=== PATIENT | female | born 1995 | race African-American/Black ===

== ENCOUNTER 2017-08-02 23:26 | Observation (INO) | payer SELFPAY ==
[2017-08-03 00:34] LABS: Pregnancy Test - Urine (BHCG) POSITIVE (Negative); Pregu Control Background? CLEAR/WHITE (CLR/WHITE); Pregu Control Bar Appear? YES (CONTROL BAR); Specific Gravity 1.024 (1.002-1.036)
[2017-08-03 00:42] LABS: #Monocytes 0.3 thou/uL (0.11-0.59); #Neutrophils 12.3 thou/uL (1.40-6.50); %Basophils 0.2 % (0.0-1.0); %Eosinophils 0.2 % (0.0-10.0); %Lymphocytes 7.6 % (28.0-48.0); %Monocytes 2.1 % (0.0-4.0); %Neutrophils 89.9 % (31.0-61.0); Hemoglobin 10.3 g/dL (12.0-16.0); Mean Corpuscular HGB CONC 32.3 g/dL (32.0-36.0); Mean Corpuscular Hemoglobin 24.9 pg (25.0-35.0); Mean Corpuscular Volume 77.2 fl (77.0-87.0); Platelet Count 209 thou/uL (130-400); RBC Distribution Width 13.9 % (11.5-14.5); Red Blood Cell (RBC) Count 4.12 mill/uL (4.00-5.20); White Blood Cell (WBC) Count 13.6 thou/uL (4.8-10.8)
[2017-08-03 01:05] LABS: ALT (SGPT) 8 U/L (8-55); AST (SGOT) 15 U/L (5-30); Albumin 4.3 g/dL (3.5-5.0); Alkaline Phosphatase 48 U/L (40-150); Anion Gap 12 mmol/L (10-20); BUN (Urea Nitrogen) 7 mg/dL (8.4-21.0); Bilirubin, Total 0.5 mg/dL (0.2-1.2); Calc. Creatinine Clearance 0 mL/min (70-130); Calcium 9.4 mg/dL (7.8-10.44); Carbon Dioxide 23 mmol/L (22-29); Chloride 104 mmol/L (98-107); Estimated GFR-MDRD Greater than 90; Globulin 2.9 g/dL (2.4-3.5); Glucose 99 mg/dL (70-105); Potassium 3.2 mmol/L (3.5-5.1); Protein, Total 7.2 g/dL (6.0-8.3); Sodium 136 mmol/L (136-145)
[2017-08-03] MEDS ORDERED: Ondansetron HCl/PF 4 MG/2 ML Vial ONE (02:09)
[2017-08-03] MEDS ORDERED: Morphine 2 MG/ML SYRINGE ONE (02:11)
[2017-08-03] MEDS ORDERED: Sodium Chloride 0.9% 1,000 ML IV SCH ×2 (03:59→04:30)
[2017-08-03] MEDS ORDERED: Ondansetron ODT 4 MG TAB SL PRN (03:59)
[2017-08-03] MEDS ORDERED: Ondansetron HCl/PF 4 MG/2 ML Vial IVP PRN (03:59)
--- NOTE | 2017-08-03 04:06 | HP ---
DATE OF ENCOUNTER: 08/03/2017 CHIEF COMPLAINT: Suspected ectopic . HISTORY OF PRESENT ILLNESS: The patient is a 21-year-old G1, P0 female who came to the emergency room reporting a 1 week history of abdominal pain with nausea and vomiting. During the work up, patient was noted to have hemoglobin at 10.3, hematocrit 31.8, and platelets of 209,000. A positive test with a quant level of 170 and a pelvic ultrasound demonstrating free fluid in the belly in the right adnexal mass. PIG STICKER was consulted for evaluation. Patient reports she has been having pain, it has gotten worse over the last week with nausea and vomiting and she came to emergency room because her pain had not been getting better. Patient reports she has had some vaginal spotting recently, but has nothing right now. Patient denies chest pain, shortness of breath. She denies any recent illness, fever, fall, headache. She has been having constipation and vaginal spotting. GYNECOLOGIC HISTORY: Patient reports her last menstrual period was the end of 06/29. She reports having regular monthly periods up to that point. PHYSICAL EXAMINATION: VITAL SIGNS: Have remained stable over the 3 hours that she has been in the emergency room with blood pressures in the one teens, 120s systolic and 60s to 70s diastolic. Pulse in the 60s, respiratory rate 18, temperature 98.1. GENERAL: She appears to be in no acute distress. She is alert and oriented, cooperative and pleasant to interact with. HEENT: Normocephalic, atraumatic. LUNGS: Clear to auscultation bilaterally. HEART: Regular rate and rhythm. ABDOMEN: Soft. She has some tenderness in the right lower quadrant, but no rebound. No peritoneal tenderness. EXTREMITIES: Nontender, nonedematous. LABS: Ultrasound findings per HPI. ASSESSMENT AND PLAN: The patient is a 21-year-old female with a suspected ectopic , interesting is the patient's vital signs remained stable, though she has free fluid seen in the belly with pulse in the 60s and complete normal blood pressure. Her physical exam apart from some right lower quadrant pain is pretty benign. Her hemoglobin level is near normal levels. After discussing these findings with the patient and giving her options of surgery versus expectant management. Patient has opted for expectant management at this time, which I think is a reasonable thing given her physical findings, laboratory findings, and a quant level of 170. It is possible that this ectopic either aborted out at the end of the tube, sometime before presentation and is already hemostatic or ruptured and is already hemostatic. Patient will remain in the hospital for observation lab work and reevaluation will be performed about every 4 to 6 hours until the picture is clear about the need to move to proceed with surgery or to continue expectant management in outpatient setting. We did discuss the risks and benefits to surgery including bleeding, infection, damage to bowel, bladder, blood vessels, possible effect on sterility or infertility in a negative fashion. Also, discussed the benefit of surgery as obtain a definitive diagnosis and resolving any complications as a result of this to prevent loss of life or worsening morbidity. Patient was brought to the floor where she will receive serial exams and laboratory work until the picture becomes more clear. LESLYE
[2017-08-03] MEDS ORDERED: Morphine 5 MG/ML SYRINGE SLOW IVP SCH ×2 (04:15→11:00)
[2017-08-03] MEDS ORDERED: Morphine 4 MG/ML Carpuject SLOW IVP SCH (04:15)
[2017-08-03 05:08] LABS: Hemoglobin 9.4 g/dL (12.0-16.0); Mean Corpuscular HGB CONC 32.2 g/dL (32.0-36.0); Mean Corpuscular Hemoglobin 24.7 pg (25.0-35.0); Mean Corpuscular Volume 76.7 fl (77.0-87.0); Mean Platelet Volume 8.8 fL (7.4-10.4); Platelet Count 168 thou/uL (130-400); RBC Distribution Width 13.9 % (11.5-14.5); White Blood Cell (WBC) Count 12.3 thou/uL (4.8-10.8)
[2017-08-03 06:45] VITALS: TEMP 98.3
[2017-08-03 07:27] LABS: Hemoglobin 9.5 g/dL (12.0-16.0); Mean Corpuscular HGB CONC 31.6 g/dL (32.0-36.0); Mean Corpuscular Hemoglobin 24.3 pg (25.0-35.0); Mean Corpuscular Volume 77.1 fl (77.0-87.0); Mean Platelet Volume 9.1 fL (7.4-10.4); Platelet Count 176 thou/uL (130-400); RBC Distribution Width 13.9 % (11.5-14.5); Red Blood Cell (RBC) Count 3.92 mill/uL (4.00-5.20); White Blood Cell (WBC) Count 11.5 thou/uL (4.8-10.8)
[2017-08-03 07:46] VITALS: BP 133/71
--- NOTE | 2017-08-03 08:03 | ULT ---
PRELIMINARY REPORT/[facility]/EMERGENCY AFTER HOURS PROCEDURE: EXAM: US , Transvaginal EXAM DATE/TIME: Exam ordered 08/03/2017 1:40 AM CLINICAL HISTORY: 21 years old, female; Pain; complicated by abdominal or pelvic pain; Right lower quadrant; First trimester; Gestational age or lmp: ? ; TECHNIQUE: Real-time transvaginal obstetrical ultrasound of the maternal pelvis and a first trimester with image documentation. Transvaginal imaging was used for better evaluation of the fetus and adnexa . COMPARISON: No relevant prior studies available. FINDINGS: Gestation: No visible intrauterine gestation. Uterus/cervix: Unremarkable. No myometrial mass. Ovaries: Normal left ovary with 1.2 cm dominant follicle. Normal Doppler signal. 6.2 x 3.2 by 2.8 cm heterogeneous and complex but mostly solid right adnexal mass with some internal Doppler vascularity. Free fluid: Moderate to large volume complex free fluid in the pelvis. IMPRESSION: 6.2 cm right adnexal mass is larger than expected for normal ovary. It may represent an adnexal mass closely apposed to the right ovary so that the two are indiscernible. Given the presence of moderate to large volume complex free fluid in the pelvis and absence of intrauterine gestation, this is very suspicious for a ruptured ectopic . Findings discussed with ZUNILDA FRANCIS MD at time of interpretation. Thank you for allowing us to participate in the care of your patient. Dictated and Authenticated by: Regulo Goins MD 08/03/2017 2:13 AM Central Time ([place] & [place]) FINAL REPORT ULTRASOUND PELVIC TRANSVAGINAL WITH DOPPLER: Date: 08/03/17 HISTORY: Pain. FINDINGS: The uterus measures 7.9 x 4.2 x 4.3 cm. Left ovary measures 2.8 x 2.4 x 2.6 cm with a 1.4 cm cyst. Ad equate vascular flow to left ovary. There is an abnormal appearance of the right adnexa with what sarita ears to be an adnexal mass, it is indeterminable from the right ovary. There appears to be complex fl uid in the cul-de-sac and hemorrhagic clot. IMPRESSION: Findings concerning for ruptured ectopic . Findings and impression are concordant with the preliminary report by Kwabena. POS: [facility]
[2017-08-03] MEDS ORDERED: traMADol HCl 50 MG TAB PO SCH (08:15)
--- NOTE | 2017-08-03 09:34 | PDOC.EVN ---
Event Note - Event Note Event Note: Finishing Supervisor [employer] note: Patient was admitted this AM (approx 0330) by Dr Lorenzana for possible early unknown location. There is a suspicion of early fimbrial . We have a repeat sono scheduled at 0930 this AM and repeat HCT at noon. Last labs have been stable. She is currently NPO. Patient seen at bedside at 0915. Non- tachycardic. Had emesis X1 this AM. BHCG was 170 (approx). We will continue observation for now. Currently, clinically stable. Await further diagnostic studies.
--- NOTE | 2017-08-03 10:48 | PDOC.EVN ---
Event Note - Event Note Event Note: Just discussed case with optometric technologist. Sono about to be obtained.
--- NOTE | 2017-08-03 11:30 | ULT ---
LIMITED PELVIC ULTRASOUND: Date: 08/03/17 HISTORY: Patient with right adnexal lesion, suspicious for ruptured ectopic . We are being asked to e valuate the volume of free fluid in the pelvis. TECHNIQUE: Multiple longitudinal and transverse images of the pelvis obtained using a multihertz curvilinear tra nsducer. Real-time, color flow, and spectral waveform Doppler analysis obtained. FINDINGS/IMPRESSION: There is again visualization of the uterus. There is a small amount of free pelvic fluid again seen. The volume of fluid is not significantly increased when compared to the previous comparison exam from earlier in the morning of 08/03/17. Blood flow is seen in the left ovary. Volume of free intraperito gudelia fluid is essentially unchanged. POS: [facility]
[2017-08-03 12:02] LABS: Hemoglobin 9.4 g/dL (12.0-16.0)
--- NOTE | 2017-08-03 12:41 | PDOC.EVN ---
Event Note - Event Note Event Note: DISCHARGE NOTE Summary: This patient was admitted 08/03/17 at approx 0330 for of unclear location. The ultrsaound visualizd a suspected adnexal madd. BHCG was under 200. As HCT has remained stable and clinically, the exxam is stable, the patient has requested discharge. I will approve release. She was instructed to follow uo this week with any OB or [facility]. Instructions reviiewed with her. Diagnosis: Early Adnexal mass PROCEDURES: Ob pelvic ultrasound x 2
== END 2017-08-03 13:50 | disposition home or self-care (01) ==
LOC: ERS 23:26 → 3SE 08-03 03:38
PROVIDERS: ADMIT Obstetrics & Gynecology; ATTEND Obstetrics & Gynecology
DX: R19.09 Other intra-abdominal and pelvic swelling, mass and lump (principal)
CPT/HCPCS: 36415; 76856; 76857; 80053; 81025; 84702; 85025; 86850; 86900; 86901; 96374; 96375; 96376; J2270; A4216; G0378; J2405

== ENCOUNTER 2019-05-15 12:29 | Emergency (ER) | payer SELFPAY ==
[2019-05-15 13:03] LABS: Bilirubin Negative (Negative); Blood, Urine Negative (Negative); Clarity Clear (Clear); Glucose, Urine (Dipstick) Normal (Negative); Leukocyte Negative Leu/uL (Negative); Nitrite Negative (Negative); Protein, Urine (Dipstick) Negative (Neg-Trace); Urobilinogen Normal mg/dL (Less than 2)
[2019-05-15] MEDS ORDERED: Ondansetron PF 4 MG/2 ML Vial ONE (13:10)
[2019-05-15 13:15] LABS: #Lymphocytes 0.6 thou/uL (1.20-3.40); #Monocytes 0.9 thou/uL (0.11-0.59); #Neutrophils 6.3 thou/uL (1.40-6.50); %Eosinophils 0.3 % (0.0-10.0); %Lymphocytes 7.9 % (21.0-51.0); %Monocytes 11.6 % (0.0-10.0); %Neutrophils 80.2 % (42.0-75.0); Hemoglobin 11.2 g/dL (12.0-16.0); Mean Corpuscular HGB CONC 32.9 g/dL (32.0-36.0); Mean Corpuscular Hemoglobin 24.6 pg (27.0-31.0); Mean Corpuscular Volume 74.8 fL (78.0-98.0); Mean Platelet Volume 10.7 fL (7.4-10.4); Platelet Count 163 thou/uL (130-400); RBC Distribution Width 13.3 % (11.5-14.5); Red Blood Cell (RBC) Count 4.55 mill/uL (4.20-5.40); White Blood Cell (WBC) Count 7.8 thou/uL (4.8-10.8)
[2019-05-15 13:28] LABS: ALT (SGPT) 13 U/L (8-55); AST (SGOT) 21 U/L (5-34); Albumin 4.1 g/dL (3.5-5.0); Alkaline Phosphatase 42 U/L (40-110); Anion Gap 11 mmol/L (10-20); BUN (Urea Nitrogen) Less than 4 mg/dL (7.0-18.7); Bilirubin, Total 0.2 mg/dL (0.2-1.2); Calc. Creatinine Clearance 0 mL/min (70-130); Carbon Dioxide 22 mmol/L (22-29); Chloride 103 mmol/L (98-107); Estimated GFR-MDRD Greater than 90; Globulin 2.4 g/dL (2.4-3.5); Glucose 88 mg/dL (70-105); Lipase 12 U/L (8-78); Potassium 3.3 mmol/L (3.5-5.1); Protein, Total 6.5 g/dL (6.0-8.3); Sodium 133 mmol/L (136-145)
[2019-05-15 13:38] LABS: Large Platelets SLIGHT; MDiff Complete? YES; Ovalocytes SLIGHT = 2-5 cells (100X) (0-1/hpf); Platelet Morphology Comment Appears Adequate; Polychromasia SLIGHT = 2-3 cells (100X) (0-2/hpf); Schistocytes SLIGHT = 2-5 cells (100X) (0-1/hpf); Target Cells SLIGHT = 2-5 cells (100X) (0-1/hpf); Tear Drops SLIGHT = 2-5 cells (100X) (0-1/hpf)
--- NOTE | 2019-05-15 14:35 | ULT ---
Exam: ultrasound less than 14 weeks: Exam includes transabdominal and vascular duplex with color and spectral Doppler imaging: HISTORY: Right lower quadrant pain FINDINGS: Early viable intrauterine fetus with a crown-rump length of 2.1 cm equivalent to 8 weeks 5 days of ge station. heart rate 178 bpm. Right ovary appears unremarkable with identifiable vascular flow. No significant abnormal fluid collection. Nonvisualized left ovary. IMPRESSION: Early viable intrauterine fetus at 8 weeks 6 days of gestation with a heart rate of 178 bpm.
[2019-05-17 14:37] LABS: Chlamydia by PCR Not Detected (NotDetected); GC by PCR Not Detected (NotDetected)
== END 2019-05-15 15:20 | disposition home or self-care (01) ==
LOC: ERS 12:29
DX: O99.89 Other specified diseases and conditions complicating pregnancy, childbirth and the puerperium (principal); R10.30 Lower abdominal pain, unspecified; Z3A.08 8 weeks gestation of pregnancy
CPT/HCPCS: 36415; 76856; 80053; 81003; 83690; 84702; 85025; 86900; 86901; 87480; 87491; 87510; 87591; 87660; 93976; 96361; 96374; J2405

== ENCOUNTER 2019-12-21 06:31 | Day surgery (SDC) | payer OTHER ==
[2019-12-21 07:13] VITALS: BP 136/90; TEMP 98.3
[2019-12-21 07:18] VITALS: BMI 33.6
[2019-12-21] MEDS ORDERED: hydrALAZINE 20 MG/ML VIAL SLOW IVP PRN (10:05)
--- NOTE | 2019-12-21 12:02 | CON ---
DATE OF CONSULTATION: 12/21/2019 PRIMARY OB: Beck Walls MD CHIEF COMPLAINT: Abdominal pain. HISTORY OF PRESENT ILLNESS: The patient is a 24-year-old, G2, P0 female with an intrauterine at 40 weeks and 2 days, presenting to Labor and Delivery with uterine contractions that began about 12:30 early this morning. She reports the contractions are regular and not consistent. She denies any leakage of fluid, change in discharge, or bleeding. She denies any fever, cough, headache, chest pain, shortness of breath, nausea, vomiting, diarrhea, constipation, hip problems, knee problems, or muscle weakness. She denies any new rashes, again vaginal bleeding, leakage of fluid, urinary urgency, or frequency. The patient reports she had intercourse just before onset of contractions. PAST MEDICAL HISTORY: Suspected ectopic , spontaneously resolved. PAST SURGICAL HISTORY: Negative. ALLERGIES: NO KNOWN DRUG ALLERGIES. MEDICATIONS: vitamins. OB LABORATORY DATA: Blood type is A positive. She is GBS negative. Rubella immune. Hepatitis B surface antigen negative. HIV nonreactive. Syphilis negative. REVIEW OF SYSTEMS: Per HPI. PHYSICAL EXAMINATION: VITAL SIGNS: Blood pressure 119/70, heart rate of 86, respiratory rate of 18, temperature 98.3. GENERAL: She appears to be in no acute distress. She is alert and oriented, cooperative and pleasant to interact with. HEAD: Normocephalic and atraumatic. LUNGS: Clear to auscultation bilaterally. HEART: Has regular rate and rhythm. ABDOMEN: Gravid, soft, and nontender. EXTREMITIES: Nontender. Nonedematous. PELVIC: Cervical exam per nursing staff is 1, 50, -2 station, unchanged after an hour and a half. heart tracing shows the fetus with a baseline in the 130s with moderate long-term variability, positive 15 x 15 accelerations. Tocometer is very irregular with contractions anywhere from 7 to 10 minutes apart with irritability in between, not strong. ASSESSMENT AND PLAN: The patient is a 24-year-old female with an intrauterine at 40 weeks and 2 days, presenting for complaints of labor. There is no evidence of labor here today. She did fail to present for her COVID-19 testing required for any elective procedures, and that has been done today during this evaluation. Her elective induction of labor has been rescheduled for tomorrow pending the lab results on time. The patient has a category 1 tracing and is being discharged home. Job ID: [id number]
[2019-12-22 12:45] LABS: SARS-CoV-2 MS2 Positive; SARS-CoV-2 N Gene Negative; SARS-CoV-2 S Gene Negative; SARS-CoV-2 orf1ab Negative
== END 2019-12-21 09:46 | disposition home or self-care (01) ==
LOC: L&D/OP 06:31
PROVIDERS: ATTEND Family Medicine
DX: O99.89 Other specified diseases and conditions complicating pregnancy, childbirth and the puerperium (principal); R10.9 Unspecified abdominal pain; O48.0 Post-term pregnancy; Z3A.40 40 weeks gestation of pregnancy
CPT/HCPCS: 59025; 87635; 99283; U0003

== ENCOUNTER 2019-12-21 06:35 | Inpatient (IN) | payer OTHER ==
[2019-12-23] MEDS ORDERED: Diphenoxylate HCl/Atropine Tablet PO PRN (00:32)
[2019-12-23] MEDS ORDERED: Methylergonovine 0.2 MG/ML VIAL IM PRN ×2 (00:32→17:12)
[2019-12-23] MEDS ORDERED: Promethazine HCl 25 MG/ML VIAL IM PRN ×2 (00:32→14:57)
[2019-12-23] MEDS ORDERED: Misoprostol 200 MCG TAB PR PRN ×2 (00:32→17:12)
[2019-12-23] MEDS ORDERED: Ibuprofen 800 MG TAB PO PRN (00:32)
[2019-12-23] MEDS ORDERED: NS / Oxytocin 40 units/1000ml 1,000 ML IV PRN (00:32)
[2019-12-23] MEDS ORDERED: Ondansetron PF 4 MG/2 ML Vial IVP PRN ×3 (00:32→17:12)
[2019-12-23] MEDS ORDERED: hydrALAZINE 20 MG/ML VIAL SLOW IVP PRN ×2 (00:32→17:12)
[2019-12-23] MEDS ORDERED: HYDROcodone/Acetaminophen 5/325 mg Tablet PO PRN ×2 (00:32→17:12)
[2019-12-23] MEDS ORDERED: Carboprost 250 MCG/ML AMP IM PRN (00:32)
[2019-12-23] MEDS ORDERED: Lidocaine 1% (PF) 30 ML VIAL SC PRN (00:32)
[2019-12-23] MEDS ORDERED: NS w/ Oxytocin 10 units 500 ML IV SCH ×2 (01:00)
[2019-12-23] MEDS ORDERED: Penicillin G Potassium 5 MILL.UNITS in Sodium Chloride 0.9% 100 ML IVPB SCH (01:00)
[2019-12-23] MEDS: Lactated Ringer's 1,000 ML IV SCH ×3 (01:20→21:23)
[2019-12-23 01:36] LABS: Hemoglobin 10.5 g/dL (12.0-16.0); Mean Corpuscular HGB CONC 32.8 g/dL (32.0-36.0); Mean Corpuscular Hemoglobin 25.2 pg (27.0-31.0); Mean Corpuscular Volume 76.7 fL (78.0-98.0); Mean Platelet Volume 10.6 fL (7.4-10.4); Platelet Count 166 thou/uL (130-400); Red Blood Cell (RBC) Count 4.19 mill/uL (4.20-5.40); White Blood Cell (WBC) Count 10.5 thou/uL (4.8-10.8)
[2019-12-23] MEDS: Misoprostol 100 MCG TAB VAG SCH ×3 (01:50→16:16)
[2019-12-23 02:15] LABS: HBSAg Index 0.21 S/CO (0-0.99); Hep B Surf Ag Non-Reactive S/CO (NonReactive)
[2019-12-23 02:25] VITALS: BMI 33.6
[2019-12-23 04:36] LABS: Syphilis Antibody Nonreactive (Nonreactive); Syphilis Antibody Index 0.04 S/CO (<1.00 Non-Reactive)
[2019-12-23] MEDS: Butorphanol Tartrate 1 MG/ML VIAL SLOW IVP PRN ×2 (08:35→11:40)
[2019-12-23] MEDS ORDERED: Fentanyl 4 mcg/Bup 0.1% Cadd 100 ML ONE (12:37)
[2019-12-23] MEDS ORDERED: Bicitra 30 ML UDCUP ONE (13:46)
[2019-12-23] MEDS ORDERED: Fentanyl 100 MCG/2 ML VIAL ONE (14:28)
[2019-12-23] MEDS ORDERED: Oxytocin 10 UNITS/ML VIAL ONE ×2 (14:51→14:55)
[2019-12-23] MEDS ORDERED: MORPHINE 5 MG/10 ML PF VIAL ONE (14:54)
[2019-12-23] MEDS ORDERED: Promethazine HCl 25 MG SUPP PR PRN (14:57)
[2019-12-23] MEDS ORDERED: Ondansetron HCl/PF 4 MG/2 ML Vial IVP PRN (14:57)
[2019-12-23] MEDS ORDERED: Ketorolac Tromethamine 30 MG/ML VIAL IVP PRN (14:57)
[2019-12-23] MEDS ORDERED: diphenhydrAMINE 50 MG/ML VIAL IVP PRN (14:57)
[2019-12-23] MEDS ORDERED: Naloxone HCl 0.4 mg/ml Vial IV PRN (14:57)
[2019-12-23] MEDS ORDERED: Naloxone HCl 0.4 mg/ml Vial IVP PRN ×2 (14:57)
[2019-12-23] MEDS ORDERED: Communication Order-Pharmacy FS SCH (15:00)
[2019-12-23 15:52] LABS: Actual Bicarbonate (HCO3a) 27.2 mEq/L (22-28); Base Excess (BEa) -1.1 mEq/L (-2.0 to +3.0)
[2019-12-23 15:55] LABS: Actual Bicarbonate (HCO3v) 24 mEq/L (22-28); Base Excess -2.8 mEq/L (-2.0 to +3.0); pH (Cord, venous) 7.32 (7.32-7.43)
[2019-12-23] MEDS: Penicillin G 2.5 MILL.units 2.5 MILL.UNITS in Premix Bag 1 BAG IVPB SCH ×3 (16:29→21:36)
[2019-12-23] MEDS ORDERED: Ketorolac Tromethamine 30 MG/ML VIAL ONE (16:35)
[2019-12-23] MEDS ORDERED: diphenhydrAMINE 25 MG CAP PO PRN (17:12)
[2019-12-23] MEDS ORDERED: Adacel (T-DAP) 0.5 ML SYRINGE IM ONE (17:12)
[2019-12-23] MEDS ORDERED: NS / Oxytocin 40 units/1000ml 1,000 ML IV SCH (17:12)
[2019-12-23] MEDS ORDERED: Lanolin Ointment 7 GM TUBE TOP PRN (17:12)
[2019-12-23] MEDS: Acetaminophen 650 MG Suppository PR SCH (18:42)
[2019-12-23] MEDS: Docusate Calcium (SURFAK) 240 MG CAP PO SCH (21:33)
[2019-12-23] MEDS: Ferrous Sulfate 325 MG TAB PO SCH (21:34)
--- NOTE | 2019-12-23 23:34 | OP ---
DATE OF PROCEDURE: 12/23/2019 RESIDENT SURGEON: Yanely Horner DO PROCEDURE PERFORMED: Primary low-transverse section. PREOPERATIVE DIAGNOSES: 1. Term intrauterine . 2. Postdate induction of labor. 3. History of ectopic . 4. Non-reassuring heart tones with persistent bradycardia, remote from delivery. POSTOPERATIVE DIAGNOSES: 1. Term intrauterine , delivered. 2. Primary low-transverse section. 3. Postdate induction of labor. 4. History of ectopic . 5. Non-reassuring heart tones with persistent bradycardia, remote from delivery. ANESTHESIA: Epidural. INDICATIONS: This is a very pleasant 24-year-old female, G2, P0-0-1-0 at 40 and 4 weeks, who presented for postdates induction of labor. Non-reassuring heart tones noted with recurrent bradycardia despite interventions. The patient remote from delivery. Decision was made to proceed with primary low transverse . PROCEDURE IN DETAIL: After risks, benefits, and alternatives were explained to the patient, she gave informed consent. Preoperative antibiotics included cefazolin 2 g IV. The patient was taken to the operating room and spinal anesthesia was initiated. She was placed in supine position with a left tilt and prepped and draped in the usual sterile fashion. A Pfannenstiel incision was made with a scalpel and carried down to the level of fascia, which was sharply nicked. The fascial cut was extended bilaterally with Nunez scissors. The inferior and superior edges of the cut fascial edges were elevated with Gladis clamps. Underlying rectus muscles were sharply and bluntly dissected free. The recti were divided digitally and retracted manually. The peritoneum was entered bluntly, retracted manually. Bladder blade was placed. A low-transverse score was made with a scalpel and the uterus was entered in the midline with a scalpel. Clear fluid was seen. Hysterotomy was extended manually. The infant was noted to be vertex and was easily delivered by fundal pressure. There was a loose nuchal x1 which was reduced. Mouth and nares were bulb suctioned. Cord was clamped and cut and grossly normal. Male infant was handed to the waiting nurse. Cord blood was obtained. Cord gases were obtained. Placenta was manually extracted, found to be intact with 3-vessel cord and discarded. The uterus was externalized and the endometrium was curetted with a dry lap. The bladder blade was replaced and the uterus was closed with a running locking #1 Monocryl suture, followed by several horizontal [id number] for hemostasis. Following this, hemostasis was noted. The abdomen was irrigated with saline and suctioned free of clots. Seprafilm was placed. The uterus was then internalized and hysterotomy was again noted to be hemostatic. The peritoneum was closed with 3-0 Vicryl in a running nonlocking fashion. The abdominal muscles were examined and bleeders were cauterized. The fascia was then closed with running nonlocking 0 PDS suture. Subcutaneous tissue was irrigated and bleeders were cauterized. The subcutaneous tissue was brought together using 3-0 Vicryl in a simple interrupted fashion. The skin was approximated with nora and pressure dressing was placed. All counts were correct. The patient tolerated the procedure well, was taken to the recovery room in stable condition. ESTIMATED BLOOD LOSS: Pending at time of dictation. COMPLICATIONS: None. SPECIMENS: Cord blood sent to lab for blood type. Cord gas sent for analysis. FINDINGS: Grossly normal male infant. Grossly normal placenta with 3-vessel cord discarded. DRAINS: Haro to gravity draining clear urine. Job ID: [id number] [facility]
[2019-12-23] MEDS: Ketorolac Tromethamine 30 MG/ML VIAL IVP SCH (23:51)
[2019-12-24] MEDS: Acetaminophen 650 MG Suppository PR SCH ×4 (01:22→18:06)
[2019-12-24] MEDS ORDERED: HYDROcodone/Acetaminophen 5/325 mg Tablet PO PRN (03:01)
[2019-12-24] MEDS ORDERED: Sodium Chloride 0.9% 10 ML ONE ×2 (05:57→14:36)
[2019-12-24] MEDS: Ketorolac Tromethamine 30 MG/ML VIAL IVP SCH ×2 (06:06→14:38)
[2019-12-24] MEDS: Simethicone Chewable 80 MG TAB PO PRN ×2 (06:07→19:00)
[2019-12-24 06:50] LABS: Hemoglobin 8.6 g/dL (12.0-16.0); Mean Corpuscular HGB CONC 31.5 g/dL (32.0-36.0); Mean Corpuscular Hemoglobin 24.5 pg (27.0-31.0); Mean Corpuscular Volume 77.6 fL (78.0-98.0); Mean Platelet Volume 10.4 fL (7.4-10.4); Platelet Count 133 thou/uL (130-400); Red Blood Cell (RBC) Count 3.52 mill/uL (4.20-5.40); White Blood Cell (WBC) Count 13.2 thou/uL (4.8-10.8)
[2019-12-24] MEDS: Prenatal Vitamin 1 TAB PO SCH (08:48)
[2019-12-24] MEDS: Docusate Calcium (SURFAK) 240 MG CAP PO SCH ×2 (08:48→20:39)
[2019-12-24] MEDS: Ferrous Sulfate 325 MG TAB PO SCH ×2 (08:48→20:39)
[2019-12-24] MEDS: HYDROcodone/Acetaminophen 5/325 mg Tablet PO PRN ×2 (08:48→19:00)
[2019-12-24] MEDS: Ibuprofen 800 MG TAB PO SCH (22:53)
[2019-12-25] MEDS: HYDROcodone/Acetaminophen 5/325 mg Tablet PO PRN ×2 (00:02→06:43)
[2019-12-25] MEDS: Ibuprofen 800 MG TAB PO SCH ×2 (06:43→13:37)
[2019-12-25] MEDS: Prenatal Vitamin 1 TAB PO SCH (08:11)
[2019-12-25] MEDS: Docusate Calcium (SURFAK) 240 MG CAP PO SCH (08:11)
[2019-12-25] MEDS: Ferrous Sulfate 325 MG TAB PO SCH (08:11)
[2019-12-25 11:49] VITALS: BP 128/71; TEMP 98.5
== END 2019-12-25 18:10 | disposition home or self-care (01) | DRG 788 ==
LOC: L&D 12-23 00:28 → 3SW 12-23 17:52
PROVIDERS: ADMIT Family Medicine; ATTEND Family Medicine
PROC: 10D00Z1 Extraction of Products of Conception, Low, Open Approach (ICD-10-PCS; principal; 2019-12-23)
PROC: 10907ZC Drainage of Amniotic Fluid, Therapeutic from Products of Conception, Via Natural or Artificial Opening (ICD-10-PCS; 2019-12-23)
PROC: 3E033VJ Introduction of Other Hormone into Peripheral Vein, Percutaneous Approach (ICD-10-PCS; 2019-12-23)
PROC: 3E0P7VZ Introduction of Hormone into Female Reproductive, Via Natural or Artificial Opening (ICD-10-PCS; 2019-12-23)
DX: O48.0 Post-term pregnancy (principal); Z3A.40 40 weeks gestation of pregnancy; O76 Abnormality in fetal heart rate and rhythm complicating labor and delivery; O61.0 Failed medical induction of labor; Z37.0 Single live birth
CPT/HCPCS: 36415; 51702; 82805; 85027; 86780; 86850; 86900; 86901; 87340; J0595; J0690; J1200; J1885; J2274; J2590; J3010

== ENCOUNTER 2020-07-25 18:28 | Emergency (ER) | payer OTHER ==
[~2020-07-25 18:28] MED LIST: Iopamidol-370 76% 500 ML 1 ML ONE
[2020-07-25] MEDS ORDERED: Dicyclomine 20 MG TAB ONE (19:20)
[2020-07-25] MEDS ORDERED: Ondansetron PF 4 MG/2 ML Vial ONE (19:21)
[2020-07-25] MEDS ORDERED: Ketorolac Tromethamine 30 MG/ML VIAL ONE (19:21)
[2020-07-25 19:27] LABS: Mean Corpuscular HGB CONC 32.1 g/dL (32.0-36.0); Mean Corpuscular Hemoglobin 24.2 pg (27.0-31.0); Mean Corpuscular Volume 75.2 fL (78.0-98.0); Mean Platelet Volume 11.9 fL (7.4-10.4); Platelet Count 179 thou/uL (130-400); RBC Distribution Width 14.4 % (11.5-14.5); Red Blood Cell (RBC) Count 4.57 mill/uL (4.20-5.40); White Blood Cell (WBC) Count 13.3 thou/uL (4.8-10.8)
[2020-07-25 19:46] LABS: BHCG - Serum Negative (NEGATIVE); Pregs Control Background? CLEAR/WHITE (CLR/WHITE); Pregs Control Bar Appear? YES (CONTROL BAR)
[2020-07-25 19:47] LABS: ALT (SGPT) 7 U/L (8-55); AST (SGOT) 20 U/L (5-34); Albumin 4.1 g/dL (3.5-5.0); Alkaline Phosphatase 73 U/L (40-110); Anion Gap 18 mmol/L (10-20); BUN (Urea Nitrogen) 6 mg/dL (7.0-18.7); Bilirubin, Total 0.2 mg/dL (0.2-1.2); Calc. Creatinine Clearance 0 mL/min (70-130); Calcium 9.2 mg/dL (7.8-10.44); Carbon Dioxide 20 mmol/L (22-29); Chloride 105 mmol/L (98-107); Globulin 3.7 g/dL (2.4-3.5); Glucose 76 mg/dL (70-105); Lipase 13 U/L (8-78); Protein, Total 7.8 g/dL (6.0-8.3); Sodium 139 mmol/L (136-145)
[2020-07-25 19:50] LABS: Bacteria/HPF None Seen HPF (None Seen); Bilirubin Negative (Negative); Blood, Urine 1+ (Negative); Clarity Clear (Clear); Glucose, Urine (Dipstick) Normal (Negative); Ketone, Urine 40 mg/dL (Negative); Leukocyte 250 Leu/uL (Negative); Nitrite Negative (Negative); Protein, Urine (Dipstick) 10 mg/dL (Neg-Trace); RBC/HPF 0-3 HPF (0-3); Specific Gravity, Urine 1.025 (1.002-1.036); Urobilinogen Normal mg/dL (Less than 2)
[2020-07-25 19:52] LABS: Band 28 % (5-11); Hypochromia SLIGHT = 6-15 cells (100X) (0-5/hpf); Large Platelets SLIGHT; Lymphocytes 9 % (21-51); MDiff Complete? YES; Microcytosis SLIGHT = 6-15 cells (100X) (0-5/hpf); Monocytes 5 % (0-10); Neutrophil 57 % (42-75); Platelet Morphology Comment Appears Adequate; Reactive Lymphocytes 1 % (0-10); Schistocytes SLIGHT = 2-5 cells (100X) (0-1/hpf); Target Cells SLIGHT = 2-5 cells (100X) (0-1/hpf); Tear Drops SLIGHT = 2-5 cells (100X) (0-1/hpf)
--- NOTE | 2020-07-25 20:55 | CT ---
CT ABDOMEN AND PELVIS WITH IV CONTRAST: 07/25/20 INDICATION: History of abdominal pain. COMPARISON: None. FINDINGS: The lung bases are clear. No definite focal hepatic lesion is evident. The pancreas, adrenal glands, and spleen appear within normal limits. No focal renal lesion or hydron ephrosis is evident. No free fluid or enlarged lymph nodes area evident. There is a normal appendix in the right lower quadrant. There is an IUD within the central aspect of the uterus. The bladder, rectum, and perirectal soft tissues are unremarkable appearing. There is small free fluid in the pelvis which is nonspecific and may be physiologic in nature. Small bowel is of normal caliber. No definite acute osseous abnormality is evident. IMPRESSION: 1. No CT explanation for the patient's abdominal pain. 2. IUD. POS: [facility]
== END 2020-07-25 22:03 | disposition home or self-care (01) ==
LOC: ERS 18:28
DX: R10.30 Lower abdominal pain, unspecified (principal); R19.7 Diarrhea, unspecified
CPT/HCPCS: 74177; 80053; 81003; 81015; 83690; 84703; 85025; 96374; 96375; J1885; J2405; Q9967

== ENCOUNTER 2021-07-25 12:26 | Emergency (ER) | payer OTHER | END 2021-07-25 13:21 | disposition home or self-care (01) | LOC: ERS 12:26 | DX: H57.89 Other specified disorders of eye and adnexa (principal) | CPT/HCPCS: 99282 ==

== ENCOUNTER 2021-07-27 16:41 | Emergency (ER) | payer OTHER | END 2021-07-27 18:13 | disposition home or self-care (01) | LOC: ERS 16:41 | DX: S00.211A Abrasion of right eyelid and periocular area, initial encounter (principal); B00.2 Herpesviral gingivostomatitis and pharyngotonsillitis; H21.01 Hyphema, right eye; Z79.899 Other long term (current) drug therapy; Y04.0XXA Assault by unarmed brawl or fight, initial encounter | CPT/HCPCS: 99283 ==

== ENCOUNTER 2022-03-07 20:05 | Emergency (ER) | payer OTHER | END 2022-03-07 22:01 | disposition home or self-care (01) | LOC: ERS 20:05 | DX: M25.532 Pain in left wrist (principal); X50.3XXA Overexertion from repetitive movements, initial encounter | CPT/HCPCS: 99283 ==

== ENCOUNTER 2022-04-11 11:19 | Emergency (ER) | payer OTHER | END 2022-04-11 14:43 | disposition home or self-care (01) | LOC: ERS 11:19 | DX: J02.0 Streptococcal pharyngitis (principal) | CPT/HCPCS: 87430; 87804; 99283 ==

== ENCOUNTER 2022-05-22 17:13 | Emergency (ER) | payer OTHER ==
[2022-05-22 18:57] LABS: Mean Corpuscular HGB CONC 30.9 g/dL (32.0-36.0); Mean Corpuscular Hemoglobin 23.8 pg (27.0-31.0); Mean Corpuscular Volume 77.1 fl (78.0-98.0); Mean Platelet Volume 11.1 fL (7.4-10.4); Platelet Count 168 10x3/uL (130-400); RBC Distribution Width 13.5 % (11.5-14.5); Red Blood Cell (RBC) Count 5.03 mill/uL (4.20-5.40); White Blood Cell (WBC) Count 20.6 10x3/uL (4.8-10.8)
[2022-05-22 19:03] LABS: BHCG - Serum Negative (NEGATIVE); Pregs Control Background? CLEAR/WHITE (CLR/WHITE); Pregs Control Bar Appear? YES (CONTROL BAR)
[2022-05-22 19:15] LABS: ALT (SGPT) Less than 7 U/L (8-55); AST (SGOT) 14 U/L (5-34); Albumin 4.7 g/dL (3.5-5.0); Alkaline Phosphatase 57 U/L (40-110); Anion Gap 16 mmol/L (10-20); BUN (Urea Nitrogen) 8 mg/dL (7.0-18.7); Calc. Creatinine Clearance 0 mL/min (70-130); Calcium 9.7 mg/dL (7.8-10.44); Carbon Dioxide 20 mmol/L (22-29); Chloride 103 mmol/L (98-107); Estimated GFR 109; Globulin 3.6 g/dL (2.4-3.5); Glucose 73 mg/dL (70-105); Potassium 3.4 mmol/L (3.5-5.1); Protein, Total 8.3 g/dL (6.0-8.3); Sodium 136 mmol/L (136-145)
[2022-05-22 19:17] LABS: Hypochromia SLIGHT = 6-15 cells (100X) (0-5/hpf); Large Platelets SLIGHT; Lymphocytes 9 % (21-51); MDiff Complete? YES; Microcytosis SLIGHT = 6-15 cells (100X) (0-5/hpf); Monocytes 3 % (0-10); Neutrophil 87 % (42-75); Ovalocytes SLIGHT = 2-5 cells (100X) (0-1/hpf); Platelet Morphology Comment Appears Adequate; Polychromasia SLIGHT = 2-3 cells (100X) (0-2/hpf); Reactive Lymphocytes 1 % (0-10); Target Cells SLIGHT = 2-5 cells (100X) (0-1/hpf)
[2022-05-22] MEDS ORDERED: Ketorolac Tromethamine 30 MG/ML VIAL ONE (20:52)
[2022-05-22] MEDS ORDERED: Ampicillin/Sulbactam 3 GM in Sodium Chloride 0.9% 100 ML IVPB SCH (21:15)
== END 2022-05-22 22:55 | disposition home or self-care (01) ==
LOC: ERS 17:13
DX: K12.2 Cellulitis and abscess of mouth (principal)
CPT/HCPCS: 36415; 70491; 80053; 83605; 84703; 85025; 87040; 96365; 96375; J0295; J1885; J3490; Q9967

== ENCOUNTER 2022-05-27 18:07 | Inpatient (IN) | payer OTHER ==
[2022-05-27] MEDS ORDERED: FENTANYL 50 MCG/ML 1 ML VIAL ONE (18:48)
[2022-05-27] MEDS ORDERED: Ondansetron PF 4 MG/2 ML Vial ONE ×2 (18:49→23:15)
[2022-05-27] MEDS ORDERED: Ketorolac Tromethamine 30 MG/ML VIAL ONE (18:49)
[2022-05-27] MEDS ORDERED: Dexamethasone 10 MG/ML VIAL ONE (18:49)
[2022-05-27 19:24] LABS: Hemoglobin 10.9 g/dL (12.0-16.0); Mean Corpuscular HGB CONC 31.7 g/dL (32.0-36.0); Mean Corpuscular Hemoglobin 24.2 pg (27.0-31.0); Mean Corpuscular Volume 76.2 fl (78.0-98.0); Mean Platelet Volume 11.4 fL (7.4-10.4); Platelet Count 200 10x3/uL (130-400); RBC Distribution Width 13.9 % (11.5-14.5); Red Blood Cell (RBC) Count 4.51 mill/uL (4.20-5.40)
[2022-05-27 19:48] LABS: Band 6 % (5-11); Lymphocytes 24 % (21-51); MDiff Complete? YES; Monocytes 8 % (0-10); Neutrophil 61 % (42-75); Platelet Morphology Comment Appears Adequate; RBC Morphology Normal; Reactive Lymphocytes 1 % (0-10)
[2022-05-27 19:49] LABS: BHCG - Serum Negative (NEGATIVE); Pregs Control Background? CLEAR/WHITE (CLR/WHITE); Pregs Control Bar Appear? YES (CONTROL BAR)
[2022-05-27 20:06] LABS: ALT (SGPT) 34 U/L (8-55); AST (SGOT) 17 U/L (5-34); Albumin 3.1 g/dL (3.5-5.0); Alkaline Phosphatase 53 U/L (40-110); Anion Gap 13 mmol/L (10-20); BUN (Urea Nitrogen) 9 mg/dL (7.0-18.7); Bilirubin, Total 0.3 mg/dL (0.2-1.2); Calc. Creatinine Clearance 0 mL/min (70-130); Calcium 8.3 mg/dL (7.8-10.44); Carbon Dioxide 24 mmol/L (22-29); Chloride 107 mmol/L (98-107); Estimated GFR 126; Globulin 2.9 g/dL (2.4-3.5); Glucose 76 mg/dL (70-105); Potassium 2.8 mmol/L (3.5-5.1); Sodium 141 mmol/L (136-145)
[2022-05-27] MEDS ORDERED: Potassium Chloride 20 MEQ TAB ONE (20:19)
[2022-05-27] MEDS ORDERED: Midazolam HCl 2 mg/2 ml Vial ONE (22:29)
[2022-05-27] MEDS ORDERED: fentaNYL PF 100 MCG/2 ML SYRINGE ONE (22:29)
[2022-05-27] MEDS ORDERED: Lidocaine 2% 6 ML SYR ONE (22:30)
[2022-05-27] MEDS ORDERED: Oxymetazoline HCl 0.05% (30 ML BOT) ONE (22:38)
[2022-05-27] MEDS ORDERED: Lidocaine 1% (PF) 30 ML VIAL ONE (22:41)
[2022-05-27] MEDS ORDERED: Chlorhexidine Gluconate 15 ML UDCUP SSP ONE (22:41)
[2022-05-27] MEDS ORDERED: EPINEPHrine 1 MG/ML AMP ONE (22:41)
[2022-05-27] MEDS ORDERED: Bupivacaine/Epinephrine 0.25% 30 ML VIAL ONE (22:41)
[2022-05-27] MEDS ORDERED: Acetaminophen 650 MG Suppository PR PRN (22:45)
[2022-05-27] MEDS ORDERED: Ondansetron PF 4 MG/2 ML Vial IVP PRN (22:45)
[2022-05-27 23:00] LABS: SARS-CoV-2 NAA Rapid Test Not Detected (NotDetected)
[2022-05-27] MEDS ORDERED: Glycopyrrolate 0.2 MG/ML 5 ML SYRINGE ONE (23:15)
[2022-05-27] MEDS ORDERED: PROPOFOL 200 MG/20 ML VIAL ONE (23:15)
[2022-05-27] MEDS ORDERED: Rocuronium Bromide 10 MG/ML (10ML VIAL) ONE (23:15)
[2022-05-27] MEDS ORDERED: Metoclopramide HCl 10 MG/2 ML VIAL ONE (23:15)
[2022-05-27] MEDS ORDERED: NEOSTIGMINE 3 MG/3 ML SYR 3 MG/3 ML SYRINGE ONE (23:15)
[2022-05-27] MEDS ORDERED: PHENYLEPHRINE-NS 100 MCG/ML 10 ML SYRINGE ONE (23:15)
[2022-05-27] MEDS ORDERED: diphenhydrAMINE 50 MG/ML VIAL ONE (23:15)
[2022-05-27] MEDS ORDERED: metroNIDAZOLE 500 MG/100 ML BAG ONE (23:41)
[2022-05-27] MEDS ORDERED: Piperacillin/Tazobactam 3.375 GM VIAL ONE (23:42)
[2022-05-27] MEDS ORDERED: Ampicillin/Sulbactam 3 GM in Sodium Chloride 0.9% 100 ML IVPB SCH (23:45)
[2022-05-28] MEDS ORDERED: Electrolyte Replacement Protocol 1 EACH FS SCH (00:30)
[2022-05-28] MEDS ORDERED: HYDROmorphone 2 MG/ML VIAL SLOW IVP PRN (00:59)
[2022-05-28] MEDS ORDERED: Ondansetron HCl/PF 4 MG/2 ML Vial IVP PRN (00:59)
[2022-05-28] MEDS ORDERED: Promethazine HCl 25 MG/ML VIAL IM PRN (00:59)
[2022-05-28] MEDS ORDERED: Promethazine HCl 25 MG/ML VIAL IVPB PRN (00:59)
[2022-05-28 01:18] LABS: Magnesium 1.8 mg/dL (1.6-2.6)
[2022-05-28] MEDS: Acetaminophen 325 MG TAB PO PRN ×2 (02:59→14:37)
[2022-05-28 05:03] VITALS: BMI 29.2
[2022-05-28] MEDS: Clindamycin/D5W 900 MG in Premix Bag 1 BAG IVPB SCH ×3 (05:15→20:38)
[2022-05-28] MEDS: metroNIDAZOLE 500 MG in Premix Bag 1 BAG IVPB SCH ×4 (05:20→23:37)
[2022-05-28] MEDS ORDERED: Clindamycin/D5W 900 MG in Premix Bag 1 BAG IVPB SCH (06:00)
[2022-05-28 06:06] LABS: Anion Gap 13 mmol/L (10-20); BUN (Urea Nitrogen) 9 mg/dL (7.0-18.7); Calc. Creatinine Clearance 146 mL/min (70-130); Calcium 8.6 mg/dL (7.8-10.44); Carbon Dioxide 26 mmol/L (22-29); Chloride 103 mmol/L (98-107); Estimated GFR 125; Glucose 120 mg/dL (70-105); Iron 39 ug/dL (50-170); Iron Binding Capacity, Total 194 mcg/dL (265-497); Potassium 3.9 mmol/L (3.5-5.1); Sodium 138 mmol/L (136-145)
[2022-05-28 06:07] LABS: Iron 42 ug/dL (50-170); Iron Binding Capacity, Total 190 mcg/dL (265-497)
[2022-05-28 06:26] LABS: Band 14 % (5-11); Hemoglobin 10.4 g/dL (12.0-16.0); Lymphocytes 7 % (21-51); MDiff Complete? YES; Mean Corpuscular HGB CONC 31.3 g/dL (32.0-36.0); Mean Corpuscular Volume 76.7 fl (78.0-98.0); Mean Platelet Volume 10.9 fL (7.4-10.4); Monocytes 3 % (0-10); Neutrophil 76 % (42-75); Platelet Count 210 10x3/uL (130-400); RBC Distribution Width 13.9 % (11.5-14.5); Red Blood Cell (RBC) Count 4.32 mill/uL (4.20-5.40); White Blood Cell (WBC) Count 13.9 10x3/uL (4.8-10.8)
[2022-05-28] MEDS ORDERED: Magnesium 2 GM/50 ML(in water) 2 GM in Premix Bag 1 BAG IVPB SCH (08:00)
[2022-05-28] MEDS: Chlorhexidine Gluconate 15 ML UDCUP SSP SCH ×3 (08:25→20:38)
[2022-05-28] MEDS ORDERED: FLU VACC QS2022-23(6MOS UP)/PF 60 MCG/0.5 ML SYRINGE IM ONE (09:00)
[2022-05-28] MEDS ORDERED: Cepastat Lozenges 1 LOZ PO PRN (12:48)
[2022-05-28] MEDS: Ibuprofen 200 MG TAB PO PRN (23:36)
[2022-05-29] MEDS: Clindamycin/D5W 900 MG in Premix Bag 1 BAG IVPB SCH ×4 (04:35→20:09)
[2022-05-29] MEDS: metroNIDAZOLE 500 MG in Premix Bag 1 BAG IVPB SCH ×3 (05:08→18:03)
[2022-05-29 05:57] LABS: Hemoglobin 9.2 g/dL (12.0-16.0); Mean Corpuscular HGB CONC 31.7 g/dL (32.0-36.0); Mean Corpuscular Volume 75.7 fl (78.0-98.0); Mean Platelet Volume 10.7 fL (7.4-10.4); Platelet Count 202 10x3/uL (130-400); RBC Distribution Width 13.7 % (11.5-14.5); Red Blood Cell (RBC) Count 3.84 mill/uL (4.20-5.40); White Blood Cell (WBC) Count 15.1 10x3/uL (4.8-10.8)
[2022-05-29 06:04] LABS: Band 7 % (5-11); Eosinophils 1 % (0-10); Lymphocytes 21 % (21-51); MDiff Complete? YES; Metamyelocyte 1 % (0-0); Monocytes 10 % (0-10); Neutrophil 60 % (42-75)
[2022-05-29 06:08] LABS: Anion Gap 12 mmol/L (10-20); BUN (Urea Nitrogen) 6 mg/dL (7.0-18.7); Calc. Creatinine Clearance 151 mL/min (70-130); Calcium 8.4 mg/dL (7.8-10.44); Carbon Dioxide 26 mmol/L (22-29); Chloride 100 mmol/L (98-107); Estimated GFR 126; Glucose 85 mg/dL (70-105); Potassium 2.9 mmol/L (3.5-5.1); Sodium 135 mmol/L (136-145)
[2022-05-29] MEDS ORDERED: Electrolyte Replacement Protocol FS PRN (07:00)
[2022-05-29] MEDS: Ondansetron ODT 4 MG TAB PO PRN ×2 (08:25→20:08)
[2022-05-29] MEDS: Chlorhexidine Gluconate 15 ML UDCUP SSP SCH ×3 (08:26→20:09)
[2022-05-29] MEDS: Saccharomyces boulardii 250 MG CAP PO SCH (08:26)
[2022-05-29] MEDS: Potassium Chloride 20 MEQ TAB PO SCH ×2 (08:26→11:51)
[2022-05-29] MEDS ORDERED: Polyethylene Glycol 3350 17 GM Packet PO PRN (13:25)
[2022-05-29] MEDS ORDERED: Calcium Carbonate 500 MG ChewTAB PO PRN (13:26)
[2022-05-29] MEDS ORDERED: NS 0.9% w/ 40 MEQ KCL 1,000 ML IV SCH (13:30)
[2022-05-29] MEDS: Potassium Citrate 1100-334mg/5ml Oral Solution PO SCH ×2 (14:34→18:18)
[2022-05-29] MEDS: Ibuprofen 200 MG TAB PO PRN (20:09)
[2022-05-29] MEDS ORDERED: Polyethylene Glycol 3350 17 GM Packet PO SCH (21:00)
[2022-05-30] MEDS: Ondansetron ODT 4 MG TAB PO PRN ×4 (02:06→23:15)
[2022-05-30] MEDS: Clindamycin/D5W 900 MG in Premix Bag 1 BAG IVPB SCH ×3 (04:32→20:19)
[2022-05-30] MEDS: metroNIDAZOLE 500 MG in Premix Bag 1 BAG IVPB SCH ×5 (05:11→23:11)
[2022-05-30 05:42] LABS: #Eosinphils 0.1 thou/uL (0.0-0.7); #Neutrophils 10.3 thou/uL (1.40-6.50); %Eosinophils 0.8 % (0.0-10.0); %Lymphocytes 14.6 % (21.0-51.0); %Monocytes 7.7 % (0.0-10.0); %Neutrophils 76.9 % (42.0-75.0); Hemoglobin 9.2 g/dL (12.0-16.0); Mean Corpuscular HGB CONC 31.3 g/dL (32.0-36.0); Mean Corpuscular Volume 76.7 fl (78.0-98.0); Mean Platelet Volume 10.5 fL (7.4-10.4); Platelet Count 208 10x3/uL (130-400); Red Blood Cell (RBC) Count 3.84 mill/uL (4.20-5.40); White Blood Cell (WBC) Count 13.4 10x3/uL (4.8-10.8)
[2022-05-30 05:56] LABS: Anion Gap 8 mmol/L (10-20); BUN (Urea Nitrogen) Less than 4 mg/dL (7.0-18.7); Calc. Creatinine Clearance 163 mL/min (70-130); Calcium 8.2 mg/dL (7.8-10.44); Carbon Dioxide 28 mmol/L (22-29); Chloride 104 mmol/L (98-107); Estimated GFR 128; Glucose 86 mg/dL (70-105); Magnesium 1.6 mg/dL (1.6-2.6); Potassium 3.6 mmol/L (3.5-5.1); Sodium 136 mmol/L (136-145)
[2022-05-30] MEDS ORDERED: NS 0.9% w/ 40 MEQ KCL 1,000 ML IV SCH (07:45)
[2022-05-30] MEDS: Magnesium Oxide 400 MG TAB PO SCH ×2 (08:57→20:24)
[2022-05-30] MEDS: Chlorhexidine Gluconate 15 ML UDCUP SSP SCH ×3 (08:57→20:24)
[2022-05-30] MEDS: Saccharomyces boulardii 250 MG CAP PO SCH (08:57)
[2022-05-30] MEDS ORDERED: Mag-Al 1200 mg/1200 mg/30 ML UDCUP PO PRN (10:58)
[2022-05-30] MEDS ORDERED: Calcium Carbonate 500 MG ChewTAB PO PRN (10:59)
[2022-05-30] MEDS: Ibuprofen 200 MG TAB PO PRN (20:24)
[2022-05-31] MEDS: Clindamycin/D5W 900 MG in Premix Bag 1 BAG IVPB SCH ×3 (05:04→20:30)
[2022-05-31] MEDS: metroNIDAZOLE 500 MG in Premix Bag 1 BAG IVPB SCH ×3 (05:39→17:12)
[2022-05-31] MEDS: Chlorhexidine Gluconate 15 ML UDCUP SSP SCH ×3 (08:47→20:30)
[2022-05-31] MEDS: Saccharomyces boulardii 250 MG CAP PO SCH (08:47)
[2022-05-31] MEDS: Magnesium Oxide 400 MG TAB PO SCH ×2 (08:47→20:31)
[2022-05-31] MEDS: Ibuprofen 200 MG TAB PO PRN ×2 (08:54→17:13)
[2022-05-31 10:06] LABS: Mean Corpuscular Hemoglobin 24.8 pg (27.0-31.0); Mean Corpuscular Volume 77.4 fl (78.0-98.0); Mean Platelet Volume 9.6 fL (7.4-10.4); Platelet Count 240 10x3/uL (130-400); Red Blood Cell (RBC) Count 4.05 mill/uL (4.20-5.40); White Blood Cell (WBC) Count 11.9 10x3/uL (4.8-10.8)
[2022-05-31 10:11] LABS: #Eosinphils 0.1 thou/uL (0.0-0.7); #Lymphocytes 2.4 thou/uL (1.20-3.40); #Monocytes 0.9 thou/uL (0.11-0.59); #Neutrophils 8.5 thou/uL (1.40-6.50); %Basophils 0.1 % (0.0-1.0); %Eosinophils 1.1 % (0.0-10.0); %Lymphocytes 20.4 % (21.0-51.0); %Monocytes 7.6 % (0.0-10.0); %Neutrophils 70.9 % (42.0-75.0)
[2022-05-31] MEDS: Ondansetron ODT 4 MG TAB PO PRN (11:52)
[2022-05-31] MEDS: Acetaminophen 325 MG TAB PO PRN (20:31)
[2022-06-01] MEDS: metroNIDAZOLE 500 MG in Premix Bag 1 BAG IVPB SCH ×2 (00:25→05:02)
[2022-06-01] MEDS: Ibuprofen 200 MG TAB PO PRN (00:26)
[2022-06-01 00:36] VITALS: TEMP 97.9
[2022-06-01] MEDS: Ondansetron ODT 4 MG TAB PO PRN (02:12)
[2022-06-01] MEDS: Clindamycin/D5W 900 MG in Premix Bag 1 BAG IVPB SCH (04:58)
[2022-06-01 06:19] LABS: #Eosinphils 0.1 thou/uL (0.0-0.7); #Lymphocytes 3.1 thou/uL (1.20-3.40); #Monocytes 0.6 thou/uL (0.11-0.59); #Neutrophils 8.1 thou/uL (1.40-6.50); %Basophils 0.3 % (0.0-1.0); %Lymphocytes 26.1 % (21.0-51.0); %Neutrophils 67.7 % (42.0-75.0); Hemoglobin 9.3 g/dL (12.0-16.0); Mean Corpuscular HGB CONC 30.8 g/dL (32.0-36.0); Mean Corpuscular Hemoglobin 23.8 pg (27.0-31.0); Mean Corpuscular Volume 77.2 fl (78.0-98.0); Mean Platelet Volume 10.1 fL (7.4-10.4); Platelet Count 243 10x3/uL (130-400); RBC Distribution Width 14.1 % (11.5-14.5); Red Blood Cell (RBC) Count 3.91 mill/uL (4.20-5.40)
[2022-06-01 06:38] LABS: Anion Gap 11 mmol/L (10-20); BUN (Urea Nitrogen) Less than 4 mg/dL (7.0-18.7); Calc. Creatinine Clearance 158 mL/min (70-130); Calcium 8.6 mg/dL (7.8-10.44); Carbon Dioxide 26 mmol/L (22-29); Chloride 103 mmol/L (98-107); Estimated GFR 127; Glucose 80 mg/dL (70-105); Potassium 3.8 mmol/L (3.5-5.1); Sodium 136 mmol/L (136-145)
[2022-06-01] MEDS: Saccharomyces boulardii 250 MG CAP PO SCH (08:30)
[2022-06-01] MEDS: Chlorhexidine Gluconate 15 ML UDCUP SSP SCH (08:30)
[2022-06-01] MEDS: Magnesium Oxide 400 MG TAB PO SCH (08:30)
[2022-06-01] MEDS: Acetaminophen 325 MG TAB PO PRN (08:33)
[2022-06-01 08:42] VITALS: BP 132/87
== END 2022-06-01 11:15 | disposition home or self-care (01) | DRG 872 ==
LOC: ERS 18:07 → SDC/OP 23:19 → SJJU 23:20
PROVIDERS: ADMIT Dentist Oral and Maxillofacial Surgery; ATTEND Internal Medicine
PROC: 0W9 Anatomical Regions, General, Drainage (ICD-10-PCS; principal; 2022-05-27)
PROC: 0J910ZZ Drainage of Face Subcutaneous Tissue and Fascia, Open Approach (ICD-10-PCS; 2022-05-27)
PROC: 3E03329 Introduction of Other Anti-infective into Peripheral Vein, Percutaneous Approach (ICD-10-PCS; 2022-05-27)
DX: A41.9 Sepsis, unspecified organism (principal); K12.2 Cellulitis and abscess of mouth; J39.0 Retropharyngeal and parapharyngeal abscess; R65.20 Severe sepsis without septic shock; E87.6 Hypokalemia; E83.42 Hypomagnesemia; D50.0 Iron deficiency anemia secondary to blood loss (chronic); R13.10 Dysphagia, unspecified; K21.9 Gastro-esophageal reflux disease without esophagitis; R11.0 Nausea; Z91.018 Allergy to other foods; Z88.5 Allergy status to narcotic agent; Z98.890 Other specified postprocedural states; Z20.822 Contact with and (suspected) exposure to COVID-19
CPT/HCPCS: 36415; 70492; 80048; 80053; 82728; 83540; 83550; 83735; 84703; 85025; 87070; 87077; 87205; 96374; 96375; J0171; J0295; J1100; J1200; J1885; J2001; J2250; J2405; J2543; J2704; J2765; J3010; J3475; J3480; J3490; Q0162; Q9967; U0002

== ENCOUNTER 2022-07-27 13:41 | Emergency (ER) | payer OTHER ==
[2022-07-27] MEDS ORDERED: cefTRIAXone\\ROCEPHIN 500 MG VIAL ONE (14:13)
[2022-07-27] MEDS ORDERED: Sterile Water 10 ML ONE (14:15)
[2022-07-27 14:53] LABS: Bilirubin Negative (Negative); Blood, Urine Negative (Negative); Clarity Clear (Clear); Glucose, Urine (Dipstick) Normal (Negative); Ketone, Urine Negative (Negative); Leukocyte Negative Leu/uL (Negative); Nitrite Negative (Negative); Protein, Urine (Dipstick) Negative (Neg-Trace); Specific Gravity, Urine 1.023 (1.002-1.036); Urobilinogen Normal mg/dL (Less than 2); pH, Urine 7.5 (5.0-9.0)
[2022-07-27 15:00] LABS: Pregnancy Test - Urine (BHCG) Negative (Negative); Pregu Control Background? CLEAR/WHITE (CLR/WHITE); Pregu Control Bar Appear? YES (CONTROL BAR); Specific Gravity 1.023 (1.002-1.036)
[2022-07-27 20:55] LABS: Chlam.trachomatis by PCR,Urine Not Detected (NotDetected)
== END 2022-07-27 15:12 | disposition home or self-care (01) ==
LOC: ERS 13:41
DX: A64 Unspecified sexually transmitted disease (principal); F17.290 Nicotine dependence, other tobacco product, uncomplicated
CPT/HCPCS: 81003; 81025; 87491; 87591; 96372; 99283; J0696

== ENCOUNTER 2023-01-16 03:53 | Emergency (ER) | payer OTHER ==
[2023-01-16] MEDS ORDERED: Cephalexin 250 MG CAP ONE (04:16)
== END 2023-01-16 04:27 | disposition home or self-care (01) ==
LOC: ERS 03:53
DX: H10.9 Unspecified conjunctivitis (principal); J02.9 Acute pharyngitis, unspecified
CPT/HCPCS: 99283

== ENCOUNTER 2023-02-24 15:08 | Outpatient (CLI) | payer OTHER | END 2023-02-24 15:09 | disposition home or self-care (01) | LOC: RAD 15:08 | PROVIDERS: ATTEND Family Medicine | DX: S69.91XA Unspecified injury of right wrist, hand and finger(s), initial encounter (principal) ==

== ENCOUNTER 2023-11-25 18:39 | Emergency (ER) | payer OTHER, SELFPAY ==
[2023-11-25 20:33] LABS: #Basophils 0.03 10x3/uL (0.0-0.2); %Basophils 0.4 % (0.0-1.0); %Eosinophils 0.6 % (0.0-10.0); %Lymphocytes 19.2 % (21.0-51.0); %Monocytes 5.9 % (0.0-10.0); %Neutrophils 73.8 % (42.0-75.0); Hematocrit 35.7 % (36.0-47.0); Hemoglobin 11.1 g/dL (12.0-16.0); Mean Corpuscular HGB CONC 31.1 g/dL (32.0-36.0); Mean Corpuscular Hemoglobin 23.5 pg (27.0-31.0); Mean Corpuscular Volume 75.5 fL (78.0-98.0); Mean Platelet Volume 11.9 fL (7.4-10.4); Platelet Count 247 10x3/uL (130-400); RBC Distribution Width 14.8 % (11.5-14.5); Red Blood Cell (RBC) Count 4.73 mill/uL (4.20-5.40)
[2023-11-25] MEDS ORDERED: Acetaminophen 500 MG TAB ONE (20:39)
[2023-11-25] MEDS ORDERED: Polyethylene Glycol 3350 17 GM Packet ONE (20:39)
[2023-11-25] MEDS ORDERED: Dicyclomine 20 MG TAB ONE (20:39)
[2023-11-25 20:51] LABS: ALT (SGPT) 7 U/L (8-55); AST (SGOT) 14 U/L (5-34); Albumin 3.7 g/dL (3.5-5.0); Alkaline Phosphatase 45 U/L (40-110); Anion Gap 11 mmol/L (10-20); BUN (Urea Nitrogen) 11 mg/dL (7.0-18.7); Bilirubin, Total 0.2 mg/dL (0.2-1.2); Calc. Creatinine Clearance 0 mL/min (70-130); Calcium 9.1 mg/dL (7.8-10.44); Carbon Dioxide 23 mmol/L (22-29); Chloride 108 mmol/L (98-107); Estimated GFR 118; Globulin 3.5 g/dL (2.4-3.5); Glucose 95 mg/dL (70-105); Potassium 3.9 mmol/L (3.5-5.1); Protein, Total 7.2 g/dL (6.0-8.3); Sodium 138 mmol/L (136-145)
[2023-11-25] MEDS ORDERED: Simethicone Chewable 80 MG TAB PO SCH (21:00)
[2023-11-25] MEDS ORDERED: Senokot 8.6 MG TAB PO SCH (21:00)
[2023-11-25 22:39] LABS: Bacteria/HPF None Seen HPF (None Seen); Bilirubin Negative (Negative); Blood, Urine Negative (Negative); CAUTI Indications for Culture Pelvic or flank pain; Clarity Clear (Clear); Glucose, Urine (Dipstick) Normal (Negative); Ketone, Urine Negative (Negative); Leukocyte Negative Leu/uL (Negative); Nitrite Negative (Negative); Pregnancy Test - Urine (BHCG) Negative (Negative); Pregu Control Background? CLEAR/WHITE (CLR/WHITE); Pregu Control Bar Appear? YES (CONTROL BAR); Protein, Urine (Dipstick) Negative (Neg-Trace); RBC/HPF 0-3 HPF (0-3); Specific Gravity 1.019 (1.002-1.036); Specific Gravity, Urine 1.019 (1.002-1.036); Squamous Epithelial 0-3 HPF (0-3); Urobilinogen Normal mg/dL (Less than 2); WBC/HPF 0-3 HPF (0-3); pH, Urine 7.5 (5.0-9.0)
[2023-11-25 22:40] LABS: Urine Culture Reflex No No
== END 2023-11-25 23:37 | disposition home or self-care (01) ==
LOC: ERS 18:39
DX: N76.0 Acute vaginitis (principal); F17.290 Nicotine dependence, other tobacco product, uncomplicated
CPT/HCPCS: 36415; 80053; 81001; 81025; 83605; 85025; 87480; 87510; 87660; 99284

== ENCOUNTER 2023-12-23 20:49 | Emergency (ER) | payer SELFPAY ==
[2023-12-23] MEDS ORDERED: Ondansetron ODT 8 MG TAB ONE (22:25)
[2023-12-23 22:42] LABS: Pregnancy Test - Urine (BHCG) Negative (Negative)
[2023-12-23 22:43] LABS: Pregu Control Background? CLEAR/WHITE (CLR/WHITE); Pregu Control Bar Appear? YES (CONTROL BAR)
[2023-12-23 22:47] LABS: Bacteria/HPF None Seen HPF (None Seen); Bilirubin Negative (Negative); Blood, Urine Negative (Negative); CAUTI Indications for Culture Pelvic or flank pain; Clarity Clear (Clear); Glucose, Urine (Dipstick) Normal (Negative); Ketone, Urine Negative (Negative); Leukocyte Negative Leu/uL (Negative); Nitrite Negative (Negative); Protein, Urine (Dipstick) Negative (Neg-Trace); RBC/HPF 0-3 HPF (0-3); Specific Gravity, Urine 1.013 (1.002-1.036); Squamous Epithelial 0-3 HPF (0-3); Urobilinogen Normal mg/dL (Less than 2); WBC/HPF None Seen HPF (0-3); pH, Urine 7.5 (5.0-9.0)
[2023-12-23 22:51] LABS: Specific Gravity 1.013 (1.002-1.036); Urine Culture Reflex No No
[2023-12-24 07:13] LABS: Influenza A by NAA Not Detected (NotDetected); Influenza B by NAA Not Detected (NotDetected); SARS-CoV-2 NAA Rapid Test Not Detected (NotDetected)
== END 2023-12-23 23:55 | disposition home or self-care (01) ==
LOC: ERS 20:49
DX: B34.9 Viral infection, unspecified (principal)
CPT/HCPCS: 81001; 81025; 99283; Q0162

== ENCOUNTER 2024-05-20 16:10 | Emergency (ER) | payer SELFPAY | END 2024-05-20 16:47 | disposition home or self-care (01) | LOC: ERS 16:10 | DX: K14.0 Glossitis (principal); F17.290 Nicotine dependence, other tobacco product, uncomplicated | CPT/HCPCS: 99283 ==

== ENCOUNTER 2024-06-10 05:15 | Emergency (ER) | payer SELFPAY ==
[2024-06-10] MEDS ORDERED: Ondansetron PF 4 MG/2 ML Vial ONE (05:33)
[2024-06-10 06:15] LABS: #Basophils Less than 0.03 10x3/uL (0.0-0.2); %Basophils 0.1 % (0.0-1.0); %Eosinophils 1.1 % (0.0-10.0); %Lymphocytes 15.2 % (21.0-51.0); %Monocytes 5.6 % (0.0-10.0); %Neutrophils 77.7 % (42.0-75.0); Hematocrit 31.8 % (36.0-47.0); Hemoglobin 10.3 g/dL (12.0-16.0); Mean Corpuscular HGB CONC 32.4 g/dL (32.0-36.0); Mean Corpuscular Hemoglobin 23.1 pg (27.0-31.0); Mean Corpuscular Volume 71.3 fL (78.0-98.0); Mean Platelet Volume 11.2 fL (7.4-10.4); Platelet Count 283 10x3/uL (130-400); RBC Distribution Width 14.5 % (11.5-14.5); Red Blood Cell (RBC) Count 4.46 mill/uL (4.20-5.40)
[2024-06-10 06:27] LABS: BHCG - Serum Negative (NEGATIVE); Pregs Control Background? CLEAR/WHITE (CLR/WHITE); Pregs Control Bar Appear? YES (CONTROL BAR)
[2024-06-10 06:28] LABS: Troponin I Less than 0.010 ng/mL (< 0.028)
[2024-06-10 06:29] LABS: ALT (SGPT) 7 U/L (8-55); AST (SGOT) 17 U/L (5-34); Albumin 3.6 g/dL (3.5-5.0); Alkaline Phosphatase 55 U/L (40-110); Anion Gap 12 mmol/L (10-20); BUN (Urea Nitrogen) 10 mg/dL (7.0-18.7); Bilirubin, Total 0.2 mg/dL (0.2-1.2); Calc. Creatinine Clearance 0 mL/min (70-130); Calcium 8.9 mg/dL (7.8-10.44); Carbon Dioxide 20 mmol/L (22-29); Chloride 109 mmol/L (98-107); Estimated GFR 124; Globulin 3.6 g/dL (2.4-3.5); Glucose 102 mg/dL (70-105); Lipase 19 U/L (8-78); Potassium 3.7 mmol/L (3.5-5.1); Protein, Total 7.2 g/dL (6.0-8.3); Sodium 137 mmol/L (136-145)
[2024-06-10 06:39] LABS: Hypochromia SLIGHT = 6-15 cells HPF (0-5); Microcytosis SLIGHT = 6-15 cells HPF (0-5); Platelet Adequacy Comment Platelets Normal
== END 2024-06-10 07:24 | disposition home or self-care (01) ==
LOC: ERS 05:15
DX: R42 Dizziness and giddiness (principal); R11.2 Nausea with vomiting, unspecified
CPT/HCPCS: 80053; 83690; 84484; 84703; 85025; 93005; 96361; 96374; J2405

== ENCOUNTER 2025-01-29 15:27 | Emergency (ER) | payer SELFPAY ==
[2025-01-29 17:09] LABS: #Basophils Less than 0.03 10x3/uL (0.0-0.2); #Eosinophils 0.15 10x3/uL (0.0-0.7); #Monocytes 0.62 10x3/uL (0.11-0.59); #Neutrophils 6.11 10x3/uL (1.40-6.50); %Basophils 0.1 % (0.0-1.0); %Eosinophils 1.7 % (0.0-10.0); %Lymphocytes 23.8 % (21.0-51.0); %Monocytes 6.8 % (0.0-10.0); %Neutrophils 67.4 % (42.0-75.0); Hematocrit 32.0 % (36.0-47.0); Hemoglobin 10.4 g/dL (12.0-16.0); Mean Corpuscular Hemoglobin 23.1 pg (27.0-31.0); Mean Corpuscular Volume 71.1 fL (78.0-98.0); Platelet Count 264 10x3/uL (130-400); Red Blood Cell (RBC) Count 4.50 mill/uL (4.20-5.40); White Blood Cell (WBC) Count 9.07 10x3/uL (4.8-10.8)
[2025-01-29 17:21] LABS: ALT (SGPT) 9 U/L (Less than 34); AST (SGOT) 25 U/L (11-34); Albumin 3.8 g/dL (3.1-4.5); Alkaline Phosphatase 63 U/L (40-110); Anion Gap 13 mmol/L (10-20); BUN (Urea Nitrogen) 8 mg/dL (7.0-18.7); Bilirubin, Total 0.2 mg/dL (0.3-1.2); Calc. Creatinine Clearance 0 mL/min (70-130); Calcium 9.1 mg/dL (7.8-10.44); Carbon Dioxide 21 mmol/L (22-29); Chloride 107 mmol/L (98-107); Globulin 3.9 g/dL (2.4-3.5); Glucose 79 mg/dL (70-105); Potassium 3.8 mmol/L (3.5-5.1); Sodium 137 mmol/L (136-145)
[2025-01-29 17:23] LABS: Pregnancy Test - Urine (BHCG) Negative (Negative); Pregu Control Background? CLEAR/WHITE (CLR/WHITE); Pregu Control Bar Appear? YES (CONTROL BAR)
[2025-01-29 17:26] LABS: Bacteria/HPF None Seen HPF (None Seen); CAUTI Indications for Culture Dysuria,urgency,freq; Glucose, Urine (Dipstick) Normal (Negative); Leukocyte Negative Leu/uL (Negative); Protein, Urine (Dipstick) 10 mg/dL (Neg-Trace); RBC/HPF 0-3 HPF (0-3); Specific Gravity, Urine 1.030 (1.002-1.036); Urine Culture Reflex No No; WBC/HPF 0-3 HPF (0-3)
[2025-01-29] MEDS ORDERED: Acetaminophen 500 MG TAB ONE (17:42)
[2025-01-29] MEDS ORDERED: Ketorolac Tromethamine 30 MG (1 mL) VIAL ONE (17:42)
== END 2025-01-29 18:09 | disposition home or self-care (01) ==
LOC: ERS 15:27
DX: N93.9 Abnormal uterine and vaginal bleeding, unspecified (principal); N83.202 Unspecified ovarian cyst, left side; F17.290 Nicotine dependence, other tobacco product, uncomplicated; Z55.6 Problems related to health literacy
CPT/HCPCS: 36415; 76856; 80053; 81001; 81025; 85025; 96372; J1885

== ENCOUNTER 2025-05-14 07:56 | Emergency (ER) | payer SELFPAY ==
[2025-05-14] MEDS ORDERED: Dexamethasone 10 MG/ML VIAL ONE (08:16)
== END 2025-05-14 09:30 | disposition home or self-care (01) ==
LOC: ERS 07:56
DX: J02.9 Acute pharyngitis, unspecified (principal); F17.290 Nicotine dependence, other tobacco product, uncomplicated
CPT/HCPCS: 87081; 87428; 87430; J1100